=== PATIENT | male | born 1965 | race Caucasian/White ===

== ENCOUNTER 2021-05-31 16:13 | Emergency (ER) | payer OTHER ==
[2021-05-31] MEDS ORDERED: Lidocaine 1% 20 ML MDV ONE (16:57)
[2021-05-31] MEDS ORDERED: Boostrix 0.5 ML (Tdap) VIAL ONE (16:57)
[2021-05-31] MEDS ORDERED: Bacitracin 1 PK ONE (18:03)
== END 2021-05-31 18:15 | disposition home or self-care (01) ==
LOC: MADERS 16:13
DX: S81.012A Laceration without foreign body, left knee, initial encounter (principal); W01.0XXA Fall on same level from slipping, tripping and stumbling without subsequent striking against object, initial encounter
CPT/HCPCS: 12002; 90471; 90715